=== PATIENT | male | born 1940 | race Caucasian/White ===

== ENCOUNTER 2016-03-12 08:59 | Outpatient (RCR) | payer MEDICARE ==
[~2016-03-12] VITALS: Ht 198.1 cm; Wt 102.5 kg
[~2016-03-12 08:59] MED LIST: Atropine Sulfate 0.4mg/ml inj IVP PRN
[2016-03-12] MEDS ORDERED: Succinylcholine 20mg/ml 10ml vial ONE (09:00)
[2016-03-12] MEDS ORDERED: Methohexital Sodium Syr 100mg/10ml IVP ONE (09:00)
[2016-03-12] MEDS ORDERED: Ketorolac 60mg Inj ONE (09:00)
[2016-03-12] MEDS ORDERED: NS 550ML IV ONE (09:00)
== END 2016-04-01 | disposition home or self-care (01) ==
LOC: ECT 08:59
DX: F33.2 Major depressive disorder, recurrent severe without psychotic features (principal); F34.1 Dysthymic disorder; F10.10 Alcohol abuse, uncomplicated; I10 Essential (primary) hypertension; R73.03 Prediabetes; M81.0 Age-related osteoporosis without current pathological fracture; Z85.038 Personal history of other malignant neoplasm of large intestine; H91.91 Unspecified hearing loss, right ear
CPT/HCPCS: 90870; J0330; J7040

== ENCOUNTER 2016-04-09 07:12 | Outpatient (RCR) | payer MEDICARE ==
[~2016-04-09] VITALS: Ht 198.1 cm; Wt 102.5 kg
[2016-04-09] MEDS ORDERED: NS 550ML IV ONE (07:13)
[2016-04-09] MEDS ORDERED: Succinylcholine 20mg/ml 10ml vial ONE (07:13)
[2016-04-09] MEDS ORDERED: Methohexital Sodium Syr 100mg/10ml IVP ONE (07:13)
[2016-04-09] MEDS ORDERED: Ketorolac 30mg Inj ONE (07:13)
[2016-04-16] MEDS ORDERED: Succinylcholine 20mg/ml 10ml vial ONE (12:30)
[2016-04-16] MEDS ORDERED: Ketorolac 30mg Inj ONE (12:30)
[2016-04-16] MEDS ORDERED: Methohexital Sodium Syr 100mg/10ml IVP ONE (12:30)
[2016-04-16] MEDS ORDERED: NS 550ML IV ONE (12:30)
[2016-04-16] MEDS ORDERED: Atropine Sulfate 0.4mg/ml inj IVP PRN (17:15)
[2016-04-23] MEDS ORDERED: Succinylcholine 20mg/ml 10ml vial ONE (07:13)
[2016-04-23] MEDS ORDERED: Methohexital Sodium Syr 100mg/10ml IVP ONE (07:13)
[2016-04-23] MEDS ORDERED: NS 550ML IV ONE (07:13)
[2016-04-23] MEDS ORDERED: Ketorolac 60mg Inj ONE (07:13)
[2016-04-29] MEDS ORDERED: NS 550ML IV ONE (12:00)
[2016-04-29] MEDS ORDERED: Methohexital Sodium Syr 100mg/10ml IVP ONE (12:00)
[2016-04-29] MEDS ORDERED: Ketorolac 30mg Inj ONE (12:00)
[2016-04-29] MEDS ORDERED: Succinylcholine 20mg/ml 10ml vial ONE (12:00)
== END 2016-04-29 | disposition home or self-care (01) ==
LOC: ECT 07:12
DX: F33.2 Major depressive disorder, recurrent severe without psychotic features (principal)
CPT/HCPCS: 90870; J0330; J1885; J7040

== ENCOUNTER 2016-05-19 05:24 | Outpatient (RCR) | payer MEDICARE ==
[~2016-05-19] VITALS: Ht 198.1 cm; Wt 102.5 kg
[2016-05-19] MEDS ORDERED: NS 550ML IV ONE (05:25)
[2016-05-19] MEDS ORDERED: Succinylcholine 20mg/ml 10ml vial ONE (05:25)
[2016-05-19] MEDS ORDERED: Ketorolac 60mg Inj ONE (05:25)
[2016-05-19] MEDS ORDERED: Methohexital Sodium Syr 100mg/10ml IVP ONE (05:25)
[2016-05-19] MEDS ORDERED: Atropine Sulfate 0.4mg/ml inj IVP PRN (08:58)
== END 2016-05-30 | disposition home or self-care (01) ==
LOC: ECT 05:24
DX: F33.2 Major depressive disorder, recurrent severe without psychotic features (principal)
CPT/HCPCS: 90870; J0330; J7040

== ENCOUNTER 2016-06-09 08:40 | Outpatient (RCR) | payer MEDICARE ==
[~2016-06-09] VITALS: Ht 198.1 cm; Wt 102.5 kg
[2016-06-09] MEDS ORDERED: Ketorolac 30mg Inj ONE (08:41)
[2016-06-09] MEDS ORDERED: Methohexital Sodium 500mg Vial IVP ONE (08:41)
[2016-06-09] MEDS ORDERED: Succinylcholine 20mg/ml 10ml vial ONE ×2 (08:41)
[2016-06-09] MEDS ORDERED: NS 550ML IV ONE ×2 (08:41)
[2016-06-09] MEDS ORDERED: Methohexital Sodium Syr 100mg/10ml IVP ONE (08:41)
[2016-06-09] MEDS ORDERED: Ketorolac 60mg Inj ONE (08:41)
[2016-06-09] MEDS ORDERED: Atropine Sulfate 0.4mg/ml inj IVP PRN (17:45)
[2016-06-23] MEDS ORDERED: Methohexital Sodium Syr 100mg/10ml IVP ONE (06:00)
[2016-06-23] MEDS ORDERED: Atropine Sulfate 0.4mg/ml inj IVP PRN (08:53)
[2016-06-27] MEDS ORDERED: Methohexital Sodium Syr 100mg/10ml IVP ONE (08:00)
[2016-06-27] MEDS ORDERED: Ketorolac 60mg Inj ONE (08:00)
[2016-06-27] MEDS ORDERED: Succinylcholine 20mg/ml 10ml vial ONE (08:00)
[2016-06-27] MEDS ORDERED: NS 550ML IV ONE (08:00)
== END 2016-06-29 | disposition home or self-care (01) ==
LOC: ECT 08:40
DX: F33.2 Major depressive disorder, recurrent severe without psychotic features (principal)
CPT/HCPCS: 90870; J0330; J1885; J7040; J3490

== ENCOUNTER 2016-07-07 09:04 | Outpatient (RCR) | payer MEDICARE ==
[~2016-07-07] VITALS: Ht 198.1 cm; Wt 102.5 kg
[2016-07-07] MEDS ORDERED: Succinylcholine 20mg/ml 10ml vial ONE (09:05)
[2016-07-07] MEDS ORDERED: Methohexital Sodium Syr 100mg/10ml IVP ONE (09:05)
[2016-07-07] MEDS ORDERED: NS 550ML IV ONE (09:05)
[2016-07-07] MEDS ORDERED: Ketorolac 60mg Inj ONE (09:05)
[2016-07-21] MEDS ORDERED: Ketorolac 60mg Inj ONE (08:00)
[2016-07-21] MEDS ORDERED: Succinylcholine 20mg/ml 10ml vial ONE (08:00)
[2016-07-21] MEDS ORDERED: Methohexital Sodium Syr 100mg/10ml IVP ONE (08:00)
[2016-07-21] MEDS ORDERED: NS 550ML IV ONE (08:00)
== END 2016-07-30 | disposition home or self-care (01) ==
LOC: ECT 09:04
DX: F33.2 Major depressive disorder, recurrent severe without psychotic features (principal)
CPT/HCPCS: 90870; J0330; J7040

== ENCOUNTER 2016-08-04 05:11 | Outpatient (RCR) | payer MEDICARE ==
[~2016-08-04] VITALS: Ht 198.1 cm; Wt 102.5 kg
[2016-08-04] MEDS ORDERED: Ketorolac 60mg Inj ONE (05:12)
[2016-08-04] MEDS ORDERED: NS 550ML IV ONE (05:12)
[2016-08-04] MEDS ORDERED: Ketamine 500mg Inj ONE (05:12)
[2016-08-04] MEDS ORDERED: Methohexital Sodium Syr 100mg/10ml IVP ONE (05:12)
[2016-08-04] MEDS ORDERED: Succinylcholine 20mg/ml 10ml vial ONE (05:12)
[2016-08-04] MEDS ORDERED: Atropine Sulfate 0.4mg/ml inj IVP PRN (08:36)
[2016-08-27] MEDS ORDERED: NS 550ML IV ONE (12:30)
[2016-08-27] MEDS ORDERED: Succinylcholine 20mg/ml 10ml vial ONE (12:30)
[2016-08-27] MEDS ORDERED: Ketorolac 30mg Inj ONE (12:30)
[2016-08-27] MEDS ORDERED: Ketamine 500mg Inj ONE (12:30)
== END 2016-08-29 | disposition home or self-care (01) ==
LOC: ECT 05:11
DX: F33.2 Major depressive disorder, recurrent severe without psychotic features (principal)
CPT/HCPCS: 90870; J0330; J1885; J3490; J7040

== ENCOUNTER 2016-09-24 06:35 | Outpatient (RCR) | payer MEDICARE ==
[~2016-09-24] VITALS: Ht 198.1 cm; Wt 102.5 kg
[2016-09-24] MEDS ORDERED: Ketorolac 60mg Inj ONE (06:36)
[2016-09-24] MEDS ORDERED: NS 550ML IV ONE (06:36)
[2016-09-24] MEDS ORDERED: Succinylcholine 20mg/ml 10ml vial ONE (06:36)
[2016-09-24] MEDS ORDERED: Ketamine 500mg Inj ONE (06:36)
== END 2016-09-29 | disposition home or self-care (01) ==
LOC: ECT 06:35
DX: F33.2 Major depressive disorder, recurrent severe without psychotic features (principal)
CPT/HCPCS: 90870; J0330; J3490; J7040

== ENCOUNTER 2016-10-15 08:50 | Outpatient (RCR) | payer MEDICARE ==
[~2016-10-15] VITALS: Ht 198.1 cm; Wt 102.5 kg
[2016-10-15] MEDS ORDERED: Succinylcholine 20mg/ml 10ml vial ONE (08:51)
[2016-10-15] MEDS ORDERED: Ketorolac 60mg Inj ONE (08:51)
[2016-10-15] MEDS ORDERED: Ketamine 500mg Inj ONE (08:51)
[2016-10-15] MEDS ORDERED: NS 550ML IV ONE (08:51)
== END 2016-10-30 | disposition home or self-care (01) ==
LOC: ECT 08:50
DX: F33.2 Major depressive disorder, recurrent severe without psychotic features (principal)
CPT/HCPCS: 90870; J0330; J3490; J7040

== ENCOUNTER 2016-11-10 09:16 | Outpatient (RCR) | payer MEDICARE ==
[~2016-11-10] VITALS: Ht 198.1 cm; Wt 102.5 kg
[~2016-11-10 09:16] MED LIST changes: -Atropine Sulfate 0.4mg/ml inj IVP PRN; +Sodium Chloride 500ML 500 ML IV ONE
[2016-11-10] MEDS ORDERED: NS 500ML IV ONE (09:17)
[2016-11-10] MEDS ORDERED: Succinylcholine 20mg/ml 10ml vial ONE (09:17)
[2016-11-10] MEDS ORDERED: Ketorolac 60mg Inj ONE (09:17)
[2016-11-10] MEDS ORDERED: Ketamine 500mg Inj ONE (09:17)
[2016-11-24] MEDS ORDERED: Succinylcholine 20mg/ml 10ml vial ONE (06:00)
[2016-11-24] MEDS ORDERED: NS 500ML IV ONE (06:00)
[2016-11-24] MEDS ORDERED: Ketamine 500mg Inj ONE (06:00)
[2016-11-24] MEDS ORDERED: Ketorolac 60mg Inj ONE (06:00)
[2016-11-24] MEDS ORDERED: Sodium Chloride 500ML 500 ML IV ONE (07:57)
== END 2016-11-29 | disposition home or self-care (01) ==
LOC: ECT 09:16
DX: F33.2 Major depressive disorder, recurrent severe without psychotic features (principal)
CPT/HCPCS: 90870; J0330; J3490; J7040

== ENCOUNTER 2016-12-15 08:15 | Outpatient (RCR) | payer MEDICARE ==
[~2016-12-15] VITALS: Ht 198.1 cm; Wt 102.5 kg
[2016-12-15] MEDS ORDERED: NS 500ML IV ONE (08:16)
[2016-12-15] MEDS ORDERED: Succinylcholine 20mg/ml 10ml vial ONE (08:16)
[2016-12-15] MEDS ORDERED: Ketamine 500mg Inj ONE (08:16)
[2016-12-15] MEDS ORDERED: Ketorolac 60mg Inj ONE (08:16)
[2016-12-15 08:50] VITALS: BP 118/68
[2016-12-15] MEDS ORDERED: Sodium Chloride 500ML 500 ML IV ONE (09:09)
== END 2016-12-30 | disposition home or self-care (01) ==
LOC: ECT 08:15 → EDSTATUS 11:27
DX: F33.2 Major depressive disorder, recurrent severe without psychotic features (principal)
CPT/HCPCS: 90870; J0330; J3490; J7040

== ENCOUNTER 2017-01-07 07:21 | Outpatient (RCR) | payer MEDICARE ==
[~2017-01-07] VITALS: Ht 198.1 cm; Wt 102.5 kg
[2017-01-07] MEDS ORDERED: NS 500ML IV ONE (07:22)
[2017-01-07] MEDS ORDERED: Succinylcholine 20mg/ml 10ml vial ONE (07:22)
[2017-01-07] MEDS ORDERED: Ketorolac 60mg Inj ONE (07:22)
[2017-01-07] MEDS ORDERED: Ketamine 500mg Inj ONE (07:22)
[2017-01-07 08:20] VITALS: BP 145/81
[2017-01-07 08:40] VITALS: BP 172/74
[2017-01-07 08:45] VITALS: BP 164/80
[2017-01-07 08:50] VITALS: BP 158/75
[2017-01-07 08:55] VITALS: BP 167/83
== END 2017-01-29 | disposition home or self-care (01) ==
LOC: ECT 07:21
DX: F33.2 Major depressive disorder, recurrent severe without psychotic features (principal)
CPT/HCPCS: 90870; J0330; J3490; J7040

== ENCOUNTER 2017-02-02 05:37 | Outpatient (RCR) | payer MEDICARE ==
[~2017-02-02] VITALS: Ht 30.5 cm; Wt 0.5 kg
[2017-02-02] MEDS ORDERED: NS 500ML ONE (05:38)
[2017-02-02] MEDS ORDERED: Ketamine 500mg Inj ONE (05:38)
[2017-02-02] MEDS ORDERED: Ketorolac 60mg Inj ONE (05:38)
[2017-02-02] MEDS ORDERED: Succinylcholine 20mg/ml 10ml vial ONE (05:38)
[2017-02-02 08:38] VITALS: BP 160/74
[2017-02-02] MEDS ORDERED: Sodium Chloride 500ML 500 ML IV ONE (08:53)
[2017-02-02 08:55] VITALS: BP 165/70
[2017-02-02 09:00] VITALS: BP 147/71
[2017-02-02 09:05] VITALS: BP 164/74
[2017-02-02 09:10] VITALS: BP 169/77
== END 2017-03-01 | disposition home or self-care (01) ==
LOC: ECT 05:37
DX: F33.2 Major depressive disorder, recurrent severe without psychotic features (principal)
CPT/HCPCS: 90870; J0330; J3490; J7040

== ENCOUNTER 2017-03-04 06:22 | Outpatient (RCR) | payer MEDICARE ==
[~2017-03-04] VITALS: Ht 198.1 cm; Wt 102.5 kg
[2017-03-04] MEDS ORDERED: NS 500ML ONE (06:23)
[2017-03-04] MEDS ORDERED: Ketamine 500mg Inj ONE (06:23)
[2017-03-04] MEDS ORDERED: Ketorolac 60mg Inj ONE (06:23)
[2017-03-04] MEDS ORDERED: Succinylcholine 20mg/ml 10ml vial ONE (06:23)
[2017-03-04 08:03] VITALS: BP 141/87
[2017-03-04] MEDS ORDERED: Sodium Chloride 500ML 500 ML IV ONE (08:09)
[2017-03-04 08:20] VITALS: BP 168/75
[2017-03-04 08:25] VITALS: BP 161/71
[2017-03-04 08:30] VITALS: BP 155/71
[2017-03-04 08:35] VITALS: BP 151/70
[2017-03-30] MEDS ORDERED: Ketorolac 60mg Inj ONE (06:00)
[2017-03-30] MEDS ORDERED: Ketamine 500mg Inj ONE (06:00)
[2017-03-30] MEDS ORDERED: Succinylcholine 20mg/ml 10ml vial ONE (06:00)
== END 2017-04-01 | disposition home or self-care (01) ==
LOC: ECT 06:22
DX: F33.2 Major depressive disorder, recurrent severe without psychotic features (principal); F34.1 Dysthymic disorder; F10.10 Alcohol abuse, uncomplicated; I10 Essential (primary) hypertension; I48.92 Unspecified atrial flutter; E78.5 Hyperlipidemia, unspecified; K57.90 Diverticulosis of intestine, part unspecified, without perforation or abscess without bleeding; R73.03 Prediabetes; M81.0 Age-related osteoporosis without current pathological fracture
CPT/HCPCS: 90870; J0330; J3490; J7040

== ENCOUNTER 2017-04-27 06:01 | Outpatient (RCR) | payer MEDICARE ==
[~2017-04-27] VITALS: Ht 30.5 cm; Wt 0.5 kg
[2017-04-27] MEDS ORDERED: Succinylcholine 20mg/ml 10ml vial ONE (06:02)
[2017-04-27] MEDS ORDERED: Ketorolac 60mg Inj ONE (06:02)
[2017-04-27] MEDS ORDERED: NS 500ML ONE (06:02)
[2017-04-27] MEDS ORDERED: Ketamine 500mg Inj ONE (06:02)
[2017-04-27 07:30] VITALS: BP 148/86
[2017-04-27] MEDS ORDERED: Sodium Chloride 500ML 500 ML IV ONE (07:48)
[2017-04-27] MEDS ORDERED: Atropine Sulfate 0.4mg/ml inj IVP PRN (07:48)
[2017-04-27 07:50] VITALS: BP 189/91
[2017-04-27 07:55] VITALS: BP 189/81
[2017-04-27 08:00] VITALS: BP 183/79
[2017-04-27 08:05] VITALS: BP 167/72
== END 2017-04-29 | disposition home or self-care (01) ==
LOC: ECT 06:01
DX: F33.2 Major depressive disorder, recurrent severe without psychotic features (principal)
CPT/HCPCS: 90870; J0330; J3490; J7040

== ENCOUNTER 2017-05-25 05:32 | Outpatient (RCR) | payer MEDICARE ==
[~2017-05-25] VITALS: Ht 198.1 cm; Wt 102.5 kg
[2017-05-25] MEDS ORDERED: Ketorolac 60mg Inj ONE (05:33)
[2017-05-25] MEDS ORDERED: Ketamine 500mg Inj ONE (05:33)
[2017-05-25] MEDS ORDERED: Succinylcholine 20mg/ml 10ml vial ONE (05:33)
[2017-05-25] MEDS ORDERED: NS 500ML ONE (05:33)
[2017-05-25 07:36] VITALS: BP 141/84
[2017-05-25] MEDS ORDERED: Sodium Chloride 500ML 500 ML IV ONE (08:03)
[2017-05-25] MEDS ORDERED: Atropine Sulfate 0.4mg/ml inj IVP PRN (08:03)
[2017-05-25 08:05] VITALS: BP 173/80
[2017-05-25 08:10] VITALS: BP 156/71
[2017-05-25 08:15] VITALS: BP 156/71
[2017-05-25 08:20] VITALS: BP 164/81
== END 2017-05-30 | disposition home or self-care (01) ==
LOC: ECT 05:32
DX: F33.2 Major depressive disorder, recurrent severe without psychotic features (principal)
CPT/HCPCS: 90870; J0330; J3490; J7040